=== PATIENT | female | born 1970 | race Caucasian/White ===

== ENCOUNTER 2023-06-15 18:04 | Emergency (ER) | payer OTHER ==
[~2023-06-15] VITALS: Ht 172.7 cm; Wt 72.6 kg
[2023-06-15 18:20] VITALS: BP 117/70; PULSE 72; RESP 20; TEMP 98; O2SAT 98
[2023-06-15] MEDS ORDERED: KETOROLAC 30 MG/ML VIAL IVP ONE (19:00)
[2023-06-15] MEDS ORDERED: ACETAMINOPHEN EXTRA STRENGTH 500 MG TAB PO ONE (19:00)
[2023-06-15] MEDS ORDERED: NACL 0.9% 1,000 ML IV ONE (19:00)
[2023-06-15 19:37] LABS: BASOPHILS % (AUTO) 0.3 % (0.0-2.0); EOSINOPHILS # (AUTO) 0.2 K/uL (0-0.4); EOSINOPHILS % (AUTO) 5.5 % (0.0-4.0); HEMATOCRIT 36.4 % (36-48); HEMOGLOBIN 11.8 g/dL (12.0-16.0); LYMPHOCYTES # (AUTO) 2.1 K/uL (2.5-16.5); LYMPHOCYTES % (AUTO) 50.1 % (20.5-51.1); MEAN CORPUSCULAR HEMOGLOBIN 26 pg (27-31); MEAN CORPUSCULAR HGB CONC 32 g/dL (33-37); MEAN CORPUSCULAR VOLUME 80.9 fL (80-94); MONOCYTES # (AUTO) 0.5 K/uL (0.8-1.0); MONOCYTES % (AUTO) 11.2 % (1.7-9.3); NEUTROPHILS # (AUTO) 1.4 K/uL (1.8-7.7); NEUTROPHILS % (AUTO) 32.9 % (42.2-75.2); PLATELET COUNT (AUTO) 233 K/uL (140-450); RED CELL DISTRIBUTION WIDTH 20.4 % (11.6-13.7); WHITE BLOOD COUNT (AUTO) 4.1 K/uL (4.8-10.8)
[2023-06-15 19:49] LABS: INR 0.94 (0.8-1.2); PARTIAL THROMBOPLASTIN TIME 26.3 secs (22-35.6); PROTHROMBIN TIME 9.9 secs (10.8-13.4)
[2023-06-15 20:06] LABS: ALBUMIN 3.4 g/dL (3.4-5.0); ANION GAP 11.6 (8-16); CALCIUM 8.4 mg/dL (8.5-10.1); CARBON DIOXIDE 27.8 mmol/L (21-32); CREATININE 0.6 mg/dL (0.6-1.3); POTASSIUM 4.4 mmol/L (3.5-5.1); TOTAL BILIRUBIN 0.2 mg/dL (0.0-1.0); TOTAL PROTEIN, SERUM 7.6 g/dL (6.4-8.2)
[2023-06-15 20:20] VITALS: O2SAT 98
[2023-06-15 20:40] LABS: FLU A ANTIGEN negative (NEGATIVE); FLU B ANTIGEN NEGATIVE (NEGATIVE)
[2023-06-15] MEDS ORDERED: AMOXIL/CLAVULANATE 875/125 MG 1 TAB PO ONE (22:00)
[2023-06-15] MEDS ORDERED: oxyCODONE 10 MG TABER PO ONE (22:00)
[2023-06-15] MEDS ORDERED: AZITHROMYCIN 250 MG TAB PO ONE (22:00)
[2023-06-15] MEDS ORDERED: AZIT250T4 PO ×2 (22:48→23:02)
[2023-06-15] MEDS ORDERED: AMOX1TAB8 PO ×2 (22:48→23:02)
[2023-06-15] MEDS ORDERED: PRED20TA5 PO ×2 (23:00→23:02)
== END 2023-06-15 23:10 | disposition home or self-care (01) ==
LOC: MED 18:04
DX: S80.12XA Contusion of left lower leg, initial encounter (principal); S80.11XA Contusion of right lower leg, initial encounter; S70.11XA Contusion of right thigh, initial encounter; J18.9 Pneumonia, unspecified organism; Z20.822 Contact with and (suspected) exposure to COVID-19; M25.512 Pain in left shoulder; I10 Essential (primary) hypertension; Z86.39 Personal history of other endocrine, nutritional and metabolic disease; Z79.899 Other long term (current) drug therapy; Z79.2 Long term (current) use of antibiotics; Z88.5 Allergy status to narcotic agent; W18.39XA Other fall on same level, initial encounter; Y92.59 Other trade areas as the place of occurrence of the external cause; Y93.89 Activity, other specified; Y99.8 Other external cause status
CPT/HCPCS: 36415; 71045; 73030; 73590; 73610; 73630; 80053; 83880; 84484; 85025; 85379; 85610; 85730; 87426; 87804; 93005; 96361; 96374; 99285; J1885; J7030; Q0092

== ENCOUNTER 2023-07-14 05:59 | Day surgery (SDC) | payer OTHER ==
[~2023-07-14] VITALS: Ht 171.4 cm; Wt 121.6 kg
[~2023-07-14 05:59] MED LIST: AMOX1TAB8 PO; AZIT250T4 PO; PRED20TA5 PO
[2023-07-14] MEDS ORDERED: fentaNYL citrate 0.05 MG/ML VIAL ONE (07:28)
[2023-07-14] MEDS ORDERED: MIDAZOLAM 2 MG/2 ML VIAL ONE ×2 (07:28→07:32)
[2023-07-14] MEDS ORDERED: MIDAZOLAM 2 MG/2 ML VIAL IVP ONE (13:15)
== END 2023-07-14 08:55 | disposition home or self-care (01) ==
LOC: MOR 05:59 → MMU 05:59 → MOR 08:55
PROVIDERS: ATTEND Internal Medicine Gastroenterology
DX: R10.13 Epigastric pain (principal); D50.0 Iron deficiency anemia secondary to blood loss (chronic); M79.7 Fibromyalgia; F17.210 Nicotine dependence, cigarettes, uncomplicated; Z98.84 Bariatric surgery status; Z90.49 Acquired absence of other specified parts of digestive tract; Z98.0 Intestinal bypass and anastomosis status; Z88.5 Allergy status to narcotic agent; Z79.899 Other long term (current) drug therapy
CPT/HCPCS: 43235; J2250; J7030; J3010